=== PATIENT | male | born 1985 | race Caucasian/White ===

== ENCOUNTER 2016-12-26 13:40 | Emergency (ER) | payer MEDICAID, OTHER ==
[~2016-12-26] VITALS: Ht 162.6 cm; Wt 82.5 kg
[2016-12-26 13:43] VITALS: Ht 162.6 cm; Wt 82.5 kg
[2016-12-26] MEDS ORDERED: BEN25 PO (15:14)
[2016-12-26] MEDS ORDERED: IBUP-1542 PO (15:14)
[2016-12-26] MEDS ORDERED: DOXY100T20 PO (15:14)
--- NOTE | 2016-12-26 15:42 | ERD ---
ER Documentation Chief Complaint Chief Complaint Complains of possible spider bite HPI Patient is a 31-year-old male presenting to the emergency department with complaints of possible spider bite to his right hand on the dorsal surface. This is been present for 1 day. Symptoms are intermittent and mild. Symptoms are worsening. The patient has taken no medication for relief of symptoms. He denies numbness, tingling, spreading redness, fevers, chills, discharge, and other symptoms currently. ROS All systems reviewed and are negative except as per history of present illness. Medications Home Meds Active Scripts Ibuprofen* (Motrin*) 600 Mg Tab, 600 MG PO Q6, #20 TAB Prov:CARINE HUDSON PA-C 12/26/16 Doxycycline Hyclate* (Doxycycline Hyclate*) 100 Mg Tablet.dr, 100 MG PO BID for 7 Days, #14 TAB Prov:CARINE HUDSON PA-C 12/26/16 Diphenhydramine Hcl* (Benadryl*) 25 Mg Cap, 25 MG PO Q6, #20 CAP Prov:CARINE HUDSON PA-C 12/26/16 PMhx/Soc Medical and Surgical Hx: pt denies Medical Hx, pt denies Surgical Hx Hx Alcohol Use: No Hx Substance Use: No Smoking Status: Never smoker Physical Exam Vitals Vital Signs Date Time Temp Pulse Resp B/P Pulse Ox O2 Delivery O2 Flow Rate FiO2 12/26/16 13:43 97.8 83 20 121/74 97 Physical Exam Const: Nontoxic, well-appearing male in no acute distress. Head: Atraumatic Eyes: Normal Conjunctiva ENT: Normal External Ears, Nose and Mouth. Skin: There is a small puncture noted to the dorsal surface of the right hand which appears to be secondary to an insect bite. There is some mild surrounding erythema but no significant warmth. No lymphatic streaking. 2+ radial pulses noted in the right upper extremity. No significant edema of the right hand. Neur: Awake and alert Psych: Normal Mood and Affect Procedures/MDM 31-year-old male presents to the emergency department with complaints of possible spider bite to the right hand. Physical examination is consistent with an uncomplicated insect bite. No signs of significant cellulitis. The patient was given a prescription for ibuprofen and Benadryl to control redness and swelling. The patient was also given a prescription for doxycycline and although I do not suspect cellulitis at this time, the patient was counseled to begin taking the doxycycline if symptoms are worsening over the next 48 hours. He understood the information. He was in agreement with the discharge diagnosis and plan. Strict ER return precautions were discussed. Low suspicion for life-threatening illness at time of discharge. The patient is to follow-up with his primary care physician within the next 1-2 days. Departure Diagnosis: Primary Impression: Insect bite Encounter type: initial encounter Qualified Code: W57.XXXA - Insect bite, initial encounter Condition: Fair Patient Instructions: Insect Bites and Stings Referrals: [facility] YOU HAVE RECEIVED A MEDICAL SCREENING EXAM AND THE RESULTS INDICATE THAT YOU DO NOT HAVE A CONDITION THAT REQUIRES URGENT TREATMENT IN THE EMERGENCY DEPARTMENT. FURTHER EVALUATION AND TREATMENT OF YOUR CONDITION CAN WAIT UNTIL YOU ARE SEEN IN YOUR DOCTORS OFFICE WITHIN THE NEXT 1-2 DAYS. IT IS YOUR RESPONSIBILITY TO MAKE AN APPOINTMENT FOR FOLOW-UP CARE. IF YOU HAVE A PRIMARY DOCTOR --you should call your primary doctor and schedule an appointment IF YOU DO NOT HAVE A PRIMARY DOCTOR YOU CAN CALL OUR PHYSICIAN REFERRAL HOTLINE AT IF YOU CAN NOT AFFORD TO SEE A PHYSICIAN YOU CAN CHOSE FROM THE FOLLOWING [facility] [address] [facility] [address] [facility] [address] [facility] [address] [facility]. [facility] [address] [facility]. [facility]. [address] Additional Instructions: Follow up with your PCP within the next 1-3 days for a repeat evaluation. If you require a referral to a specialist, your Primary Care Provider may be able to provide this for you. In most patient cases, a referral is not required. If you have further questions regarding this matter, please ask your Primary Care Provider. Return the the emergency department immediately if symptoms worsen or change. If you have any questions regarding medications, ask your pharmacist or us before you leave. If any adverse reactions, occur while taking your medications, discontinue the treatment and return to the emergency department immediately. If any new or worsening symptoms, uncontrolled fevers, or other unexplained symptoms occur, return to the emergency department immediately. Take your medications as directed, and complete the entire course of treatment. CARINE HUDSON PA-C Dec 26, 2016 15:42
== END 2016-12-26 15:28 | disposition home or self-care (01) ==
LOC: FTE 13:40
DX: S60.561A Insect bite (nonvenomous) of right hand, initial encounter (principal); W57.XXXA Bitten or stung by nonvenomous insect and other nonvenomous arthropods, initial encounter; Y92.9 Unspecified place or not applicable
CPT/HCPCS: 99283